=== PATIENT | female | born 1995 | race Hispanic/Latino ===

== ENCOUNTER 2024-04-23 22:41 | Emergency (ER) | payer SELFPAY ==
[~2024-04-23] VITALS: Ht 154.9 cm; Wt 118.8 kg
[2024-04-24] MEDS: ketOROlac 15MG/ML VIAL (15MG/ML) IV ONE (00:22)
[2024-04-24] MEDS: ondanSETRON 4MG INJ IVP ONE (00:22)
[2024-04-24] MEDS: 0.9%NACL 1000ML 1,000 ML IV ONE (00:23)
[2024-04-24] MEDS: acetaMINOPHEN 500 MG TABLET PO ONE (00:23)
--- NOTE | 2024-04-24 00:48 | NUR ---
TRANSFERED CARE TO [facility] AT THIS TIME
[2024-04-24 01:23] VITALS: TEMP 100
[2024-04-24] MEDS ORDERED: ONDA-243 PO (01:23)
[2024-04-24] MEDS ORDERED: AZIT250T9 PO (01:23)
--- NOTE | 2024-04-24 01:24 | ERN ---
General Chief Complaint: Nausea,Vomiting,Diarrhea Stated Complaint: C/O N X V, DIARRHEA; (+) FLU Time Seen by MD: 22:45 Time Seen by Midlevel: 22:45 Source: patient History of Present Illness Initial Comments Patient is a 28-year-old female with no significant past medical history presenting to the emergency department with nausea, vomiting, and diarrhea that started today. The patient was diagnosed with flu and was started on Tamiflu today. Patient denies taking anything for her fever. Denies any other concerns at this time. Allergies: Coded Allergies: No Known Allergies (Unverified Allergy, Unknown, 04/23/24) Home Meds Active Scripts Albuterol Sulfate (Ventolin Hfa/Proventil Hfa/Proair Hfa) 90 Mcg Puff, 2 PUFF IH Q4H PRN for SHORTNESS OF BREATH/WHEEZING for 30 Days, #1 INH 0 Refills Prov:CADY DIAZ 04/24/24 Azithromycin (Azithromycin) 250 Mg Tablet, 1 TAB PO AD for 5 Days, #6 TAB 0 Refills 2 the first day followed by 1 for days 2-5 Prov:CADY DIAZ 04/24/24 Ondansetron (Ondansetron Odt) 4 Mg Tab.rapdis, 4 MG PO BID for 7 Days, #14 TAB Prov:CADY DIAZ 04/24/24 Past Medical History Past Medical History: No Pertinent History Past Surgical History: None Female( History) LMP: Mar 29, 2024 ROS Dictation CONSTITUTIONAL: Negative except for HPI HEAD/FACE: Negative except for HPI EENT: Negative except for HPI RESPIRATORY: Negative except for HPI GASTROINTESTINAL/ABDOMINAL: Negative except for HPI GENITOURINARY: Negative except for HPI MUSCULOSKELETAL: Negative except for HPI INTEGUMENTARY: Negative except for HPI NEUROLOGICAL/PSYCH: Negative except for HPI HEMATOLOGIC/LYMPHATIC: Negative except for HPI All Systems Negative, Except as noted above. 13 point review of systems assessed and all negative except for above. Physical Exam Physical Exam Dictation Vital Signs reviewed General Appearance: Alert, oriented x 3, no acute distress, well developed, nourished. Head and Face: non-traumatic. Eyes: PERRL, pink conjunctivas, eyelid no trauma, anterior chamber with arcus senilis. Ears: Pinnas intact and no signs of trauma or erythema ear canals clear and no discharge TM no erythema Nose: No discharge, no bleeding. Oropharynx: Mouth normal, tongue pink, pharynx clear,no erythema, tonsils no exudates, no abscesses noted, mucous membrane moist Neck: Supple, non-tender, no thyromegaly, no masses, no JVD, no bruits Breast:Deferred Chest:No tenderness, no crepitus, no paradoxical movement, no retractions Lungs:Clear, well-ventilated, symmetric, no rales, no wheezing, no rhonchi, no stridor, good breath sounds bilaterally Heart: Regular rate, regular rhythm, no murmur, no gallops Vascular: no peripheral edema, Abdomen: Soft, positive bowel sounds, nondistended, no guarding, nontender, no rebound, no masses no hepatomegaly, no splenomegaly, no Emmanuel's sign, no hernias. Rectal: Deferred Genital: Deferred Neurological: Normal speech, motor function intact, sensory function intact Musculoskeletal: Neck nontender, full range of motion, back nontender, full range of motion, Extremities: nontender, full range of motion Skin: Color pink, dry, no turgor, no rash, no lacerations, no abrasions, no contusions. Lymphatic: Deferred Results Laboratory and Microbiology Lab and Micro Result Laboratory Tests Test 04/24/24 00:05 Serum Test, Qualitative NEGATIVE (NEGATIVE) Labs Reviewed?: Yes MDM MDM: Differential diagnosis: Dehydration, electrolyte abnormality, medication reaction There are no social concerns with this patient. Prescription drug management Prescriptions will include: Albuterol inhaler, azithromycin, Zofran Medical management and examination interpretation discussions were had by me with other qualified healthcare professionals as indicated for the patient's care. ED Course Orders Procedure Category Date Status Time 0.9%Nacl 1000ml (Ns PHA 04/24/24 Complete 1000ml) 00:00 Ondansetron 4mg Inj PHA 04/24/24 Complete (Zofran 4mg Inj) 00:00 Ketorolac PHA 04/24/24 Complete Tromethamine 15mg/Ml 00:00 Acetaminophen 500mg PHA 04/24/24 Complete Tab (Tylenol 500mg T 00:00 Chest 1vw RAD 04/23/24 Resulted 23:54 Testing, LAB 04/23/24 Complete Serum Hcg 23:59 Current Medications Medications (Trade) Dose Ordered Sig/Eleazar Route PRN Reason Start Time Stop Time Status Last Admin Dose Admin Acetaminophen (TYLenol 500MG TAB) 1,000 mg ONCE ONCE PO 04/24/24 00:00 04/24/24 00:01 DC 04/24/24 00:23 Ketorolac Tromethamine (toRADol) 15 mg ONCE ONCE IV 04/24/24 00:00 04/24/24 00:01 DC 04/24/24 00:22 Ondansetron HCl (zoFRAN 4MG INJ) 4 mg ONCE ONCE IVP 04/24/24 00:00 04/24/24 00:01 DC 04/24/24 00:22 Sodium Chloride 1,000 ml @ 0 mls/hr ONCE ONCE IV 04/24/24 00:00 04/24/24 00:01 DC 04/24/24 00:23 Vital Signs Date Time Temp Pulse Resp B/P (MAP) Pulse Ox O2 Delivery O2 Flow Rate FiO2 04/24/24 01:53 99.7 99 18 147/83 99 Room Air* 0 21 04/24/24 00:23 103.1 04/23/24 23:22 103.1 120 20 160/85 98 Room Air* 0 21 04/23/24 22:45 103.1 121 20 161/86 99 Room Air DX & DISP Disposition: Discharge Departure Impression: Primary Impression: Influenza A Condition: Stable Scripts Albuterol Sulfate (Ventolin Hfa/Proventil Hfa/Proair Hfa) 90 Mcg Puff 2 PUFF IH Q4H PRN for SHORTNESS OF BREATH/WHEEZING for 30 Days, #1 INH 0 Refills Prov: CADY DIAZ 04/24/24 Azithromycin (Azithromycin) 250 Mg Tablet 1 TAB PO AD for 5 Days, #6 TAB 0 Refills 2 the first day followed by 1 for days 2-5 Prov: CADY DIAZ 04/24/24 Ondansetron (Ondansetron Odt) 4 Mg Tab.rapdis 4 MG PO BID for 7 Days, #14 TAB Prov: CADY DIAZ 04/24/24 Additional Instructions: Your symptoms are most likely related to influenza. You were prescribed Tamiflu. This medication may cause GI discomfort that may include diarrhea. Continue to hydrate over the next couple of days. I have given you a prescription for Zofran which should help with your symptoms. I have also given you a prescription for azithromycin to prevent pneumonia. Please take Tylenol and Motrin as needed for fever. Follow up with your primary care doctor in 2-3 days for repeat evaluation. Return to the ER for any new or worsening symptoms Referrals: SELF,REFERRAL (PCP) I have reviewed the case, and I agree with, Diagnosis and Plan I performed the substantive portion of the visit. I have reviewed and personally made and approve the management plan that is documented in the note by myself or the NE[facility]. I acknowledge for responsibility for the patient's management plan. CADY DIAZ Apr 24, 2024 01:24
[2024-04-24] MEDS ORDERED: ALBUHFA IH (01:49)
[2024-04-24 01:53] VITALS: BP 147/83; PULSE 99; RESP 18; TEMP 99.7; O2SAT 99
--- NOTE | 2024-04-24 09:16 | HMCIMG ---
CHEST 1VW HISTORY: Shortness of breath COMPARISON: None FINDINGS: A frontal projection of the chest was obtained. No acute pulmonary infiltrates is seen. The heart is normal in size. Prominent interstitial markings are seen. No evidence of aortic calcification is seen. IMPRESSION: 1. No acute pulmonary infiltrate is seen.
== END 2024-04-24 01:54 | disposition home or self-care (01) ==
LOC: EDH 22:41
DX: J10.1 Influenza due to other identified influenza virus with other respiratory manifestations (principal)
CPT/HCPCS: 99284; 71045; 84703; 36415; 96374; 96375; J1885; J7030; J2405